=== PATIENT | female | born 1980 | race Caucasian/White ===

== ENCOUNTER 2019-02-27 18:46 | Emergency (ER) | payer BC ==
[2019-02-27] MEDS ORDERED: ONDANSETRON 4 MG/2 ML VIAL ONE (19:33)
[2019-02-27] MEDS ORDERED: NA CHLORIDE 0.9% 1,000 ML ONE (19:33)
[2019-02-27] MEDS ORDERED: MEPERIDINE HCL 25 MG/0.5 ML ONE ×2 (19:33→21:57)
[2019-02-27 20:06] LABS: Absolute Lymphocytes (CBC) 0.6 K/uL (0.7-4.9); Absolute Monocytes 0.3 K/uL (0.1-1.3); Absolute Neutrophil 8.3 K/uL (1.8-8.0); Basophils % 0.2 % (0-1.3); Hematocrit 43.1 % (36.0-45.0); Lymphocytes % 6.3 % (15.3-44.8); MPV 8.9 fL (7.6-11.3); Monocytes % 3.1 % (3.3-12.3); RBC Red Blood Cell Count 5.08 M/uL (3.86-4.86)
[2019-02-27 20:15] LABS: ALT/SGPT 17 U/L (12-78); AST/SGOT 10 U/L (15-37); Albumin 3.6 g/dL (3.4-5.0); Alkaline Phosphatase 86 U/L (45-117); BUN Blood Urea Nitrogen 15 mg/dL (7-18); Bicarbonate 21 mmol/L (21-32); Bilirubin Direct < 0.1 mg/dL (0-0.2); Bilirubin Total 0.5 mg/dL (0.2-1.0); Glucose Level 132 mg/dL (74-106); Lipase 53 U/L (73-393); Potassium 3.6 mmol/L (3.5-5.1); Protein, Total 7.6 g/dL (6.4-8.2); Sodium Level 139 mmol/L (136-145)
[2019-02-27 20:33] LABS: Blood Morphology Comment NOT SEEN (NOT SEEN); Platelet Estimate ADEQ; Urine White Blood Cell Casts OK
[2019-02-27 21:32] LABS: Urine Bacteria >50 /HPF (<20); Urine RBC <5 /HPF (NONE SEEN)
[2019-02-27 21:33] LABS: Urine Amorphous Sediment 3+ /HPF (NONE SEEN); Urine Culture Reflex Order REFLEXED; Urine Mucus 3+ /HPF (NONE SEEN)
[2019-02-27 21:37] LABS: Urine Blood NEGATIVE (NEG); Urine Glucose NEGATIVE (NEG); Urine Protein NEGATIVE (NEG); Urine Specific Gravity >1.030 (1.005-1.030)
[2019-02-28] MEDS ORDERED: HYDROCODONE/APAP 10/325 TAB ONE (00:51)
[2019-02-28] MEDS ORDERED: metroNIDAZOLE 500 MG TABLET ONE (00:51)
[2019-02-28] MEDS ORDERED: ONDANSETRON 4 MG/2 ML VIAL ONE (00:52)
[2019-02-28] MEDS ORDERED: CIPROFLOXACIN HCL 500 MG TAB ONE (00:52)
--- NOTE | 2019-02-28 00:56 | EDPHYS ---
Physician Documentation [facility] Name: Mirna Price Age: 38 yrs Sex: Female : 1980 Arrival Date: 02/27/2019 Time: 18:50 Bed 20 Private MD: ED Physician Aj Huynh HPI: 02/27 19:42 This 38 yrs old Female presents to ER via Wheelchair with complaints of rn Abdominal Pain, Vomiting. 19:42 The patient presents to the emergency department with nausea, vomiting, diarrhea, rn abdominal pain. Onset: The symptoms/episode began/occurred this morning. Possible causes: unknown. The symptoms are aggravated by pressure, The symptoms are alleviated by nothing. Severity of symptoms: At their worst the symptoms were moderate in the emergency department the symptoms are unchanged. The patient has experienced a previous episode. The patient has not recently seen a physician. Reports abd pain, diffuse, began at 0400 today, assoc with non-bloody vomiting and diarrhea. Non-focal pain. + fever. Not able to keep anything down. . 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 - Social history:: Smoking status: Patient/guardian denies using tobacco. - Ebola Screening: : No symptoms or risks identified at this time. - Family history:: not pertinent. - Hospitalizations: : No recent hospitalization is reported. ROS: 19:42 Constitutional: + fever Eyes: Negative for injury, pain, redness, and discharge, ENT: rn Negative for injury, pain, and discharge, Neck: Negative for injury, pain, and swelling, Cardiovascular: Negative for palpitations, and edema, Respiratory: Negative for shortness of breath, cough, wheezing, and pleuritic chest pain, Abdomen/GI: + abd pain/nausea/vomiting/diarrhea Back: Negative for injury and pain, : Negative for injury, bleeding, discharge, and swelling, MS/Extremity: Negative for injury and deformity, Skin: Negative for injury, rash, and discoloration, Neuro: + generalized weakness, negative for headache or seizure Exam: 19:42 Constitutional: This is a well developed, well nourished patient who is awake, alert, rn appears uncomfortable and holding emesis bag Head/Face: Normocephalic, atraumatic. Eyes: Pupils equal round and reactive to light, extra-ocular motions intact. Lids and lashes normal. Conjunctiva and sclera are non-icteric and not injected. Cornea within normal limits. Periorbital areas with no swelling, redness, or edema. ENT: dry MM Cardiovascular: tachycardic, regular, pulses intact and equal Respiratory: mild tachypnea, speaking full sentences, no retractions Abdomen/GI: soft, mild tenderness all 4 quadrants, no rebound or peritoneal signs. Skin: Warm, dry, no evidence of cellulitis MS/ Extremity: Pulses equal, no cyanosis. Neurovascular intact. Full, normal range of motion. Equal circumference. Neuro: Awake and alert, GCS 15, oriented to person, place, time, and situation. Cranial nerves II-XII grossly intact. Motor strength 5/5 in all extremities. Sensory grossly intact. Cerebellar exam normal. Vital Signs: 18:55 BP 130 / 78; Pulse 116; Resp 24 S; Temp 98.3(O); Pulse Ox 99% on R/A; Weight 127.01 kg aa5 (R); Height 5 ft. 11 in. (180.34 cm) (R); Pain 7/10; 19:30 BP 155 / 75; Pulse 90; Resp 22; Temp 98.4; Pulse Ox 99% ; Pain 10/10; rr5 20:00 BP 158 / 82; Pulse 94; Resp 18; Pulse Ox 99% on R/A; rr5 21:00 BP 141 / 70; Pulse 85; Resp 16; Pulse Ox 98% on R/A; rr5 23:00 BP 134 / 75; Pulse 90; Resp 17; Pulse Ox 99% ; rr5 02/28 00:00 BP 133 / 84; Pulse 85; Resp 16; Temp 98.4; Pulse Ox 99% ; rr5 00:40 BP 131 / 80; Pulse 80; Resp 16; Temp 98.4; Pulse Ox 99% ; Pain 7/10; rr5 02/27 18:55 Body Mass Index 39.05 (127.01 kg, 180.34 cm) aa5 MDM: 02/27 18:59 Patient medically screened. rn 23:06 ED course: Per Dr. Harris, borderline appendix and oral contrast did not make it to rn appendix, states more consistent with enteritis, her clinical picture is more consistent with enteritis, will re-scan to prove not acute appendicitis. Pt did drink oral contrast, not sure why didn't show up on imaging.. 02/28 00:27 ED course: Repeat CT abdomen shows normal appendix, patient feels better, is getting PO rn challenge and if passes will dc home. . 00:54 Differential diagnosis: Nonspecific abd pain, gastritis, pancreatitis, appendicitis, rn diverticulitis, viral gastroenteritis, gastroenteritis. Data reviewed: vital signs, nurses notes, lab test result(s), radiologic studies, CT scan, and as a result, I will discharge patient. Counseling: I had a detailed discussion with the patient and/or guardian regarding: the historical points, exam findings, and any diagnostic results supporting the discharge/admit diagnosis, lab results, radiology results, the need for outpatient follow up, to return to the emergency department if symptoms worsen or persist or if there are any questions or concerns that arise at home. Response to treatment: the patient's symptoms have markedly improved after treatment, and as a result, I will discharge patient. Special discussion: Based on the patient's Hx, exam, and Dx evaluation, there is no indication for emergent surgery or inpatient Tx. It is understood by the patient/guardian that if the Sx's persist or worsen they need to return immediately for re-evaluation. I discussed with the patient/guardian in detail that at this point there is no indication for admission to the hospital. It is understood, however, that if the symptoms persist or worsen the patient needs to return immediately for re-evaluation. 02/27 19:08 Order name: Basic Metabolic Panel rn 02/27 19:08 Order name: CBC with Diff; Complete Time: 22:59 02/27 19:08 Order name: Hepatic Function rn 02/27 19:08 Order name: Lipase; Complete Time: 22:59 02/27 19:08 Order name: Urine Microscopic Only; Complete Time: 22:59 02/27 19:10 Order name: Basic Metabolic Panel; Complete Time: 22:59 EDMS 02/27 19:08 Order name: CT Abd/Pelvis - W/Contrast 02/27 19:10 Order name: Liver (Hepatic) Function; Complete Time: 22:59 EDMS 02/27 19:47 Order name: Flu; Complete Time: 22:59 rn 02/27 20:09 Order name: CBC Smear Scan; Complete Time: 22:59 [facility] 02/27 21:25 Order name: Urine --Ancillary (enter results); Complete Time: 22:59 [facility] 02/27 21:25 Order name: Urine Dipstick--Ancillary (enter results); Complete Time: 22:59 [facility] 02/27 21:35 Order name: Urine Culture [facility] 02/27 19:08 Order name: IV Saline Lock; Complete Time: 20:06 rn 02/27 19:08 Order name: Labs collected and sent; Complete Time: 20:06 rn 02/27 19:08 Order name: Urine Test (obtain specimen); Complete Time: 20:33 rn 02/27 19:08 Order name: Urine Dipstick-Ancillary (obtain specimen); Complete Time: 20:33 rn Administered Medications: 02/27 19:40 Drug: NS 0.9% 1000 ml Route: IV; Rate: 1000 ml; Site: left forearm; rr5 20:34 Follow up: Response: No adverse reaction; IV Status: Completed infusion; IV Intake: rr5 1000ml 21:35 Follow up: Response: No adverse reaction; IV Status: Completed infusion; IV Intake: rr5 1000ml 19:41 Drug: Zofran 4 mg Route: IVP; Site: left forearm; rr5 21:00 Follow up: Response: No adverse reaction rr5 19:43 Drug: Demerol 25 mg Route: IVP; Site: left forearm; rr5 20:40 Follow up: Response: No adverse reaction rr5 21:35 Drug: Demerol 25 mg Route: IVP; Site: left forearm; rr5 22:35 Follow up: Response: No adverse reaction rr5 02/28 00:40 Drug: Zofran 4 mg Route: IVP; Site: left forearm; rr5 01:12 Follow up: Response: No adverse reaction rr5 00:42 Drug: [place] 10 mg-325 mg 1 tabs Route: PO; rr5 01:12 Follow up: Response: No adverse reaction rr5 00:42 Drug: Cipro 500 mg Route: PO; rr5 01:12 Follow up: Response: No adverse reaction rr5 00:42 Drug: Flagyl 500 mg Route: PO; rr5 01:12 Follow up: Response: No adverse reaction rr5 Disposition: 02/28/19 00:55 Discharged to Home. Impression: Enteritis, Vomiting, unspecified, Diarrhea, unspecified. - Condition is Stable. - Discharge Instructions: Diarrhea, Adult, Nausea and Vomiting, Adult, Viral Gastroenteritis, Adult. - Prescriptions for Zofran ODT 4 mg Oral tablet,disintegrating - place 1 tablet by TRANSLINGUAL route every 8 hours As needed; 20 tablet. Cipro 500 mg Oral Tablet - take 1 tablet by ORAL route every 12 hours for 10 days; 20 tablet. Flagyl 500 mg Oral Tablet - take 1 tablet by ORAL route every 8 hours for 10 days; 30 tablet. Tylenol- Codeine #3 300-30 mg Oral Tablet - take 1 tablet by ORAL route every 6 hours As needed; 20 tablet. - Medication Reconciliation Form, Thank You Letter, Antibiotic Education, Prescription Opioid Use form. - Follow up: Private Physician; When: As needed; Reason: Recheck today's complaints, Re-evaluation by your physician. - Problem is new. - Symptoms have improved. Signatures: Dispatcher [employer] [facility] Aj Huynh MD MD rn Calderon, Audri RN RN aa5 Maged Silva RN RN rr5 Corrections: (The following items were deleted from the chart) 00:19 00:14 Pelvis Wo Cont ordered. [facility] 01:13 00:55 02/28/2019 00:55 Discharged to Home. Impression: Enteritis; Vomiting, rr5 unspecified; Diarrhea, unspecified. Condition is Stable. Forms are Medication Reconciliation Form, Thank You Letter, Antibiotic Education, Prescription Opioid Use. Follow up: Private Physician; When: As needed; Reason: Recheck today's complaints, Re-evaluation by your physician. Problem is new. Symptoms have improved. rn
--- NOTE | 2019-02-28 00:56 | ER ---
Nurse's Notes [facility] Name: Mirna Price Age: 38 yrs Sex: Female : 1980 Arrival Date: 02/27/2019 Time: 18:50 Bed 20 Private MD: Diagnosis: Enteritis;Vomiting, unspecified;Diarrhea, unspecified Presentation: 02/27 18:53 Presenting complaint: Patient states: abdominal pain, nausea, vomiting, and diarrhea aa5 that began today at 0400. Pt also reports fever up to 101.5 F. Transition of care: patient was not received from another setting of care. Onset of symptoms was February 27, 2019. Risk Assessment: Do you want to hurt yourself or someone else? Patient reports no desire to harm self or others. Care prior to arrival: None. 18:53 Method Of Arrival: Wheelchair aa5 18:53 Acuity: MIRA 3 aa5 19:20 Initial Sepsis Screen: Does the patient meet any 2 criteria? No. Patient's initial rr5 sepsis screen is negative. Does the patient have a suspected source of infection? No. Patient's initial sepsis screen is negative. 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 - Social history:: Smoking status: Patient/guardian denies using tobacco. - Ebola Screening: : No symptoms or risks identified at this time. - Family history:: not pertinent. - Hospitalizations: : No recent hospitalization is reported. Screenin:00 Abuse screen: Denies threats or abuse. Denies injuries from another. Nutritional rr5 screening: No deficits noted. Tuberculosis screening: No symptoms or risk factors identified. Fall Risk IV access (20 points). Total Miller Fall Scale indicates No Risk (0-24 pts). Assessment: 19:10 General: Appears in no apparent distress. uncomfortable, Behavior is calm, cooperative, rr5 appropriate for age, crying. Pain: Complains of pain in abdomen Pain does not radiate. Pain currently is 7 out of 10 on a pain scale. Quality of pain is described as aching, Pain began gradually, Is intermittent. Neuro: Level of Consciousness is awake, alert, obeys commands, Oriented to person, place, time, situation, Appropriate for age. Cardiovascular: Capillary refill < 3 seconds Patient's skin is warm and dry. Respiratory: Airway is patent Respiratory effort is even, unlabored, Respiratory pattern is regular, symmetrical. GI: Abdomen is round obese, Bowel sounds present X 4 quads. Abd is soft X 4 quads Reports lower abdominal pain, upper abdominal pain, nausea, vomiting. : No signs and/or symptoms were reported regarding the genitourinary system. EENT: No signs and/or symptoms were reported regarding the EENT system. Derm: Skin is intact, Skin temperature is warm. Musculoskeletal: Capillary refill < 3 seconds, Range of motion: intact in all extremities. 20:00 Reassessment: Patient appears in no apparent distress at this time. oral contrast rr5 consumed. CT staff informed. 20:44 Reassessment: Patient appears in no apparent distress at this time. Patient is alert, rr5 oriented x 3, equal unlabored respirations, skin warm/dry/pink. awaiting for CT procedure Patient states symptoms have improved. 21:30 Reassessment: Patient appears in no apparent distress at this time. complaints that rr5 abdominal pain came back. ED provider aware with order made and carried out. 21:48 Reassessment: Patient appears in no apparent distress at this time. Patient is alert, rr5 oriented x 3, equal unlabored respirations, skin warm/dry/pink. went for CT scan. 22:00 Reassessment: Patient appears in no apparent distress at this time. Patient is alert, rr5 oriented x 3, equal unlabored respirations, skin warm/dry/pink. back from CT scan. 23:00 Reassessment: Patient appears in no apparent distress at this time. Patient and/or rr5 family updated on plan of care and expected duration. Pain level reassessed. Patient is alert, oriented x 3, equal unlabored respirations, skin warm/dry/pink. Patient states feeling better. Patient states symptoms have improved. 23:15 Reassessment: Ed provider wants to re scan the patient.talked to patient and agreed. rr5 02/28 00:10 Reassessment: Patient appears in no apparent distress at this time. Patient and/or rr5 family updated on plan of care and expected duration. Pain level reassessed. Patient is alert, oriented x 3, equal unlabored respirations, skin warm/dry/pink. came back from CT scan. 01:05 Reassessment: Patient appears in no apparent distress at this time. Patient and/or rr5 family updated on plan of care and expected duration. Pain level reassessed. Patient is alert, oriented x 3, equal unlabored respirations, skin warm/dry/pink. discharge instruction given and explained without complaints made. Patient states feeling better. Patient states symptoms have improved. Vital Signs: 02/27 18:55 BP 130 / 78; Pulse 116; Resp 24 S; Temp 98.3(O); Pulse Ox 99% on R/A; Weight 127.01 kg aa5 (R); Height 5 ft. 11 in. (180.34 cm) (R); Pain 7/10; 19:30 BP 155 / 75; Pulse 90; Resp 22; Temp 98.4; Pulse Ox 99% ; Pain 10/10; rr5 20:00 BP 158 / 82; Pulse 94; Resp 18; Pulse Ox 99% on R/A; rr5 21:00 BP 141 / 70; Pulse 85; Resp 16; Pulse Ox 98% on R/A; rr5 23:00 BP 134 / 75; Pulse 90; Resp 17; Pulse Ox 99% ; rr5 02/28 00:00 BP 133 / 84; Pulse 85; Resp 16; Temp 98.4; Pulse Ox 99% ; rr5 00:40 BP 131 / 80; Pulse 80; Resp 16; Temp 98.4; Pulse Ox 99% ; Pain 7/10; rr5 02/27 18:55 Body Mass Index 39.05 (127.01 kg, 180.34 cm) aa5 ED Course: 02/27 18:50 Patient arrived in ED. mr 18:54 Triage completed. aa5 18:54 Arm band placed on. aa5 18:58 Aj Huynh MD is Attending Physician. rn 19:14 Maged Silva, MATT is Primary Nurse. rr5 19:20 Patient has correct armband on for positive identification. Placed in gown. Bed in low rr5 position. Call light in reach. Side rails up X2. Pulse ox on. NIBP on. 19:40 Initial lab(s) drawn, by me, sent to lab. Inserted saline lock: 20 gauge in left rr5 forearm, using aseptic technique. Blood collected. 21:55 CT Abd/Pelvis - W/Contrast In Process Unspecified. EDMS 02/28 01:10 No provider procedures requiring assistance completed. IV discontinued, intact, rr5 bleeding controlled, No redness/swelling at site. Pressure dressing applied. Administered Medications: 02/27 19:40 Drug: NS 0.9% 1000 ml Route: IV; Rate: 1000 ml; Site: left forearm; rr5 20:34 Follow up: Response: No adverse reaction; IV Status: Completed infusion; IV Intake: rr5 1000ml 21:35 Follow up: Response: No adverse reaction; IV Status: Completed infusion; IV Intake: rr5 1000ml 19:41 Drug: Zofran 4 mg Route: IVP; Site: left forearm; rr5 21:00 Follow up: Response: No adverse reaction rr5 19:43 Drug: Demerol 25 mg Route: IVP; Site: left forearm; rr5 20:40 Follow up: Response: No adverse reaction rr5 21:35 Drug: Demerol 25 mg Route: IVP; Site: left forearm; rr5 22:35 Follow up: Response: No adverse reaction rr5 02/28 00:40 Drug: Zofran 4 mg Route: IVP; Site: left forearm; rr5 01:12 Follow up: Response: No adverse reaction rr5 00:42 Drug: [place] 10 mg-325 mg 1 tabs Route: PO; rr5 01:12 Follow up: Response: No adverse reaction rr5 00:42 Drug: Cipro 500 mg Route: PO; rr5 01:12 Follow up: Response: No adverse reaction rr5 00:42 Drug: Flagyl 500 mg Route: PO; rr5 01:12 Follow up: Response: No adverse reaction rr5 Intake: 02/27 20:34 IV: 1000ml; Total: 1000ml. rr5 21:35 IV: 1000ml; Total: 2000ml. rr5 Outcome: 02/28 00:55 Discharge ordered by . rn 01:10 Discharged to home ambulatory, with family. rr5 01:10 Condition: stable 01:10 Discharge instructions given to patient, Instructed on discharge instructions, follow up and referral plans. medication usage, Demonstrated understanding of instructions, follow-up care, medications, Prescriptions given X 4. 01:13 Patient left the ED. rr5 Signatures: Dispatcher [employer] NITABia Badillo mr HuynhAj celis MD MD rn Yue Jackson, RN RN aa5 Maged Silva RN RN rr5 Corrections: (The following items were deleted from the chart) 02/27 23:34 23:15 Reassessment: CT department wants to re scan the patient. ED provider talked to rr5 patient and agreed. rr5
[2019-02-28 01:28] VITALS: TEMP 98.4
[2019-02-28 01:32] VITALS: O2SAT 99
[2019-02-28 01:35] VITALS: BP 131/80
--- NOTE | 2019-02-28 13:11 | RAD REPORT ---
EXAM DESCRIPTION: CT - Abdomen Pelvis W Contrast - 02/28/2019 11:39 am CLINICAL HISTORY: Abdominal pain COMPARISON: none. TECHNIQUE: Computed axial tomography of the abdomen pelvis was obtained. 100 cc Isovue-300 was admin istered intravenously. Oral contrast was not requested which limits evaluation of bowel. All CT scans are performed using dose optimization technique as appropriate and may include automated exposure control or mA/KV adjustment according to patient size. FINDINGS: 31 millimeter hepatic cyst Spleen, pancreas, adrenal and kidneys appear unremarkable. There is no evidence of diverticulitis. Normal appendix Fluid within nondilated large and small bowel IMPRESSION: Fluid within nondilated bowel may indicate an enteritis.
== END 2019-02-28 01:13 | disposition home or self-care (01) ==
LOC: ER 18:46
DX: K52.9 Noninfective gastroenteritis and colitis, unspecified (principal); Z88.0 Allergy status to penicillin
CPT/HCPCS: 36415; 74177; 80048; 80076; 81003; 81015; 81025; 83690; 85025; 87086; 87088; 87804; 96361; 96374; 96375; 99284; J2175; J2405; J7030; Q9967

== ENCOUNTER 2022-07-01 22:02 | Emergency (ER) | payer BC ==
--- OUTSIDE RECORDS SUMMARY | 2022-07-01 22:08 | XMS REPORT | Continuity of Care Document ---
:1980 Author Organization [facility] t Address [address] [place] [address] Care Team Providers Name Role Phone King Cat Elieser Primary Care Physician Mily Pickard Attending Clinician [phone] Rossana To MD Attending Clinician Kilo Grubbs MD Attending Clinician Ann Calloway RN Attending Clinician Unavailable Amirah Green MA Attending Clinician Unavailable Vladimir Oreilly Attending Clinician Unavailable Jose Alfredo Attending Clinician Unavailable Vladimir Oreilly Attending Clinician [phone] ROSSANA TO Admitting Clinician Unavailable Jose Alfredo Admitting Clinician Unavailable Payers Payer Name Policy Type Policy Number Effective Date Expiration Date S arturo [facility]: [place] [id number] 2022 [facility] - [place] DIRECT 00:00:00 (PPO) Problems Condition Condition Condition Status Onset Resolution Last Treating Co mments Source Name Details Category Date Date Treatment Clinician Date 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 06-14 labrum labrum 00:00: Hospita lesion of lesion of 00 l right right shoulder shoulder Biceps Biceps Disease Active [facility] tendonitis tendonitis 06-07 , , 00:00: Hospita unspecifie unspecifie 00 l d d laterality laterality Partial Partial Disease Active [facility] nontraumat nontraumat 06-07 ic tear of ic tear of 00:00: Ho spita right right 00 l rotator rotator cuff cuff Impingemen Impingemen Disease Active M ethodi t syndrome t syndrome 6-21 st of right of right 00:00: Hospit a shoulder shoulder 00 l Allergies, Adverse Reactions, Alerts Allergy Allergy Status Severity Reaction(s) Onset Inactive Treating Comm ents Source Name Type Date Date Clinician Magdalena Monzon Active Rash Method i ins ty to 8[address] st adverse 00:00: Hospita reaction 00 l s to drug Social History Social Habit Start Date Stop Date Quantity Comments Source History of Current smoker [facility] tobacco use [facility] Tobacco use and 2022-03-22 2022-03-22 Smokeless tobacco Me [facility]ist exposure 00:00:00 00:00:00 non-user Hospital Sex Assigned At [birth year] [facility] 00:00:00 00:00:00 Hospital Smoking Status Start Date Stop Date Source Ex-smoker 2022-03-22 00:00:00 2022-03-22 00:00:00 [facility] Medications Ordered Filled Start Stop Current Ordering Indication Dosage Frequency Signature Comments Components Source Medication Medication Date Date Medication? Clinician (SIG) Name Name lisinopriL Yes 15mg QD Take 1.5 Met hodi (PRINIVIL) 9-[address] 10 mg 16:00: (15 mg Hospita tablet 14 total) by l mouth daily. PARoxetine Yes 20mg QD Take 1 Metho di (PAXIL) 20 9-29 tablet (20 st MG tablet 16:00: mg total) Hos leroy 14 by mouth l every morning. keTOROlac Yes 10mg Q6H Take 1 Method i (TORadol) 9-26 tablet (10 st 10 mg 00:00: mg total) Hospita tablet 00 by mouth l every 6 (six) hours as needed for moderate pain for up to 20 doses. HYDROcodone 2021- Yes 1{tbl} Q6H Take 1-2 Methodi -acetaminop 9-26 10-04 tablets by s heidy isidro (NORCO) 00:00: 04:59 mouth Hosp georgina 5-325 mg 00 :00 every 6 l per tablet (six) hours as needed for moderate pain for up to 7 days .acute pain. Max Daily Amount: 8 tablets diclofenac 100mg QD Take 1 Met hodi sodium 03-[address] (VOTAREN 00:00: 00:00 (100 mg Hospi ta XR) 100 mg 00 :00 total) by l 24 hr mouth tablet daily. Vital Signs Vital Name Observation Time Observation Value Comments Source Systolic blood 2022-06-29 20:05:00 127 mm[Hg] [facility] pressure Diastolic blood 2022-06-29 20:05:00 85 mm[Hg] [facility] pressure Heart rate 2022-06-29 20:05:00 69 /min [facility] Body temperature 2022-06-29 20:05:00 36.67 Lori [facility] Respiratory rate 2022-06-29 20:05:00 18 /min [facility] Oxygen saturation in 2022-06-29 20:05:00 96 /min [facility] Arterial blood by Pulse oximetry BMI 2022-06-29 11:54:00 43.93 kg/m2 [facility] Body height 2022-06-29 11:54:00 180.3 cm [facility] Body weight 2022-06-29 11:54:00 142.883 kg [facility] Procedures Procedure Date / Time Performed Performing Clinician Effie HODGES AN ELECTIVE 2022-06-29 15:47:00 Justin Mohamud [facility] ENDOTRACHEAL AIRWAY [place] ARTHROSCOPY, SHOULDER 2022-06-29 15:40:00 Rossana To [facility] HC NERVE BLOCK, 2022-06-29 15:12:05 Stephanie Gloria [facility] INTERSCALENE COVID-19 QUALITATIVE 2022-06-27 15:27:00 Rossana To [facility] RT-PCR MRI SHOULDER WO CONTRAST 2022-06-10 13:40:00 Rossana To [facility] RIGHT MRI UPPER EXTREMITY 2022-02-24 23:12:43 Rossana To [facility] EXTERNAL STUDY XR UPPER EXTREMITY 2022-02-21 15:23:38 [facility] Plan of Care Planned Activity Planned Date Details Comments Source Future Scheduled 2022-06-30 HEPATITIS B [facility] Test 19:20:17 VACCINES (1 of 3 - 3-dose series) [code = HEPATITIS B VACCINES (1 of 3 - 3-dose series)] Future Scheduled 2022-06-30 COVID-19 VACCINE [facility] Test 19:20:17 (#1) [code = COVID-19 VACCINE (#1)] Future Scheduled 2022-06-30 Hepatitis C [facility] ospital Test 19:20:17 screening (procedure) [code = 315167634] Future Scheduled 2022-06-30 Screening for [facility] Test 19:20:17 malignant neoplasm of cervix (procedure) [code = 734896234] Future Scheduled 2022-06-30 BREAST CANCER [facility] Test 19:20:17 SCREENING [code = BREAST CANCER SCREENING] Future Scheduled 2022-06-30 INFLUENZA VACCINE Method [facility] Test 19:20:17 [code = INFLUENZA VACCINE] Encounters Start End Encounter Admission Attending Care Care Encounter Source Date/Time Date/Time Type Type Clinicians Facility Department ID 2022-06-30 2022-06-30 [facility] 1.2.840.1 [id number] [facility] 00:00:00 00:00:00 Mily 70191.1.1 775 s t R. 3.430.2.7 Hospit a .3.337900 l .8 2022-06-29 2022-06-29 [facility] 1.2.840.1 [id number] Methodi 06:24:00 16:00:00 Encounter Rossana Roger 92474.1.1 372 s t 3.430.2.7 Hospit a .3.087317 l .8 2022-06-29 2022-06-29 Surgery [facility] 1.2.840.1 [id number] Methodi 10:45:00 13:25:[address]1.[address] 3.430.2.7 Hospit a .3.897696 l .8 2022-06-29 2022-06-29 Anesthesia Kilo Grubbs 1.2.840.1 1 [id number] Methodi 10:40:00 12:20:00 Event Ann Calloway 24646.1.[address] 3.430.2.7 Hospit a .3.248188 l .8 2022-06-29 2022-06-29 Travel 1.2.840.1 1.2.298.540 [id number] Methodi 00:00:00 00:00:[address] 3.430.2.7 0.2.7.3.698 spita .3.948288 084.8 l .8 2022-06-29 2022-06-29 Outpatient [facility] [id number] [place] 00:00:00 00:00:00 ROSSANA [address] 2022-06-28 2022-06-28 Telephone [place], 1.2.840.1 [id number] Methodi 00:00:00 00:00:00 Ross[address]1.[address] 3.430.2.7 Hospit a .3.751981 l .8 2022-06-27 2022-06-27 Outpatient [facility] [id number] [place] 00:00:00 00:00:00 ROSSANA [address] 2022-06-17 2022-06-17 Orders Norma, 1.2.840.1 [id number] Methodi 00:00:00 00:00:00 Only Amirah 36371.1.[address] 3.430.2.7 Hospit a .3.503401 l .8 2022-06-14 2022-06-14 [facility], 1.2.840.1 [id number] Methodi 12:00:00 12:20:04 ne Rossana Roger 39571.1.[address] 3.430.2.7 Hospit a .3.670805 l .8 2022-06-14 2022-06-14 Outpatient [facility] [id number] [place] 00:00:00 00:00:00 ROSSANA [address] 2022-06-10 2022-06-10 Outpatient [facility] [id number] [place] 00:00:00 00:00:00 ROSSANA [address] 2022-06-07 2022-06-07 Office [facility], 1.2.840.1 [id number] Methodi 09:30:00 09:45:00 Visit Rossana AxelIsa 65366.1.[address] 3.430.2.7 Hospit a .3.390950 l .8 2022-06-07 2022-06-07 Outpatient YOUSUF [facility] [id number] [place] 00:00:00 00:00:[address] ROSSANA [address] 2022-06-07 2022-06-07 Travel 1.2.840.1 1.2.198.655 [id number] Methodi 00:00:00 00:00:[address] 3.430.2.7 0.2.7.3.698 Ho spita .3.963105 084.8 l .8 2022-04-21 2022-04-21 [facility], 1.2.840.1 [id number] Methodi 00:00:00 00:00:[address] 3.430.2.7 Hospit a .3.642144 l .8 2022-03-25 2022-03-25 Outpatient [id number] [facility] 07:30:00 07:30:00 Vladimir 31 [facility] 2022-03-22 2022-03-22 [facility], 1.2.840.1 [id number] Methodi 11:59:07 23:59:00 Encounter Rossana Roger 39830.1.1 616 s t 3.430.2.7 Hospit a .3.892018 l .8 2022-03-22 2022-03-22 [facility], 1.2.840.1 [id number] Methodi 11:56:57 11:58:00 Encounter Rossana Roger 37392.1.1 268 s t 3.430.2.7 Hospit a .3.551278 l .8 2022-03-22 2022-03-22 Office [place], 1.2.840.1 [id number] Methodi 10:45:00 11:15:00 Visit Rossana Roger [address]896.1.[address] 3.430.2.7 Hospit a .3.987907 l .8 2022-03-22 2022-03-22 Outpatient [place], [facility] [id number] [place] 00:00:00 00:00:00 ROSSANA [address] 2022-03-22 2022-03-22 Outpatient [place], [facility] [id number] [place] 00:00:00 00:00:00 ROSSANA [address] 2022-03-22 2022-03-22 Outpatient [place], [facility] [id number] [place] 00:00:00 00:00:00 ROSSANA [address] 2022-03-22 2022-03-22 [facility], 1.2.840.1 [id number] Methodi 00:00:00 00:00:00 Only Rossana Roger 85878.1.[address] 3.430.2.7 Hospit a .3.488162 l .8 2022-03-01 2022-03-01 Outpatient FOG_Burke_R AOSM AOSM [id number] Ava 05:15:00 05:15:00 Bob [id number] [facility] 2022-03-01 2022-03-01 Outpatient Oreilly, AOSM AOSM [id number] 4-e 00:00:00 00:00:00 Vladimir Browning [id number]-[id number] 3eacc1 2022-02-24 2022-02-24 Outpatient Oreilly, AOSM AOSM [id number] e-e 00:00:00 00:00:00 Vladimir Browning [id number]-a [id number] 3eacc1 2022-02-23 2022-02-23 Travel 1.2.840.1 1.2.437.064 [id number] Methodi 00:00:00 00:00:[address] 3.430.2.7 0.2.7.3.698 Ho spita .3.522710 084.8 l .8 Results Test Description Test Time Test Comments Results Result Comments Source SARS-CoV-2 (COVID-19) RNA [Presence] in Respiratory sp ecimen by 2022-06-27 22:16:14 [place] with probe detection Test Item Value Reference Range Interpretation Comme nts SARS-CoV-2 (COVID-19) RNA [Presence] in Respiratory specimen by Not detected [place] with probe detection (test code = 19970-3) Whether patient is employed in a healthcare setting (test code = Un known 85826-7) Whether the patient has symptoms related to condition of interest U nknown (test code = 40156-0) Whether the patient was hospitalized for condition of interest Unkn own (test code = 32334-8) Whether the patient was admitted to intensive care unit (ICU) for U nknown condition of interest (test code = 80597-8) Whether patient resides in a congregate care setting (test code = U nknown 16177-7) status (test code = 57751-6) Unknown Date and time of symptom onset (test code = 38202-2) Unknown
[2022-07-01 22:57] LABS: Absolute Lymphocytes (CBC) 2.4 K/uL (0.7-4.9); Hematocrit 31.5 % (36.0-45.0); Lymphocytes % 30.8 % (15.3-44.8); MCV 82.9 fL (80-100); MPV 7.9 fL (7.6-11.3); RBC Red Blood Cell Count 3.81 M/uL (3.86-4.86)
[2022-07-01 23:23] LABS: Protime INR 0.93
[2022-07-01 23:52] LABS: Urine Blood 3+ (Negative); Urine Glucose Negative (Negative); Urine Protein 1+ (Negative); Urine Specific Gravity >=1.030 (1.005-1.030); Urine pH 5.5 (5.0-7.0)
--- NOTE | 2022-07-02 01:02 | ER ---
Nurse's Notes [facility] Name: Mirna Price Age: 41 yrs Sex: Female : 1980 Arrival Date: 07/01/2022 Time: 22:05 Bed 15 Private MD: Diagnosis: Dyspnea Presentation: 07/01 22:26 Chief complaint: Patient states: Pt reports rotator cuff surgery on Mon and began kb3 feeling SOB yesterday. States SOB has gotten worse throughout today. Mild exertional SOB noted with ambulation. Coronavirus screen: Vaccine status: Patient reports being unvaccinated. Client denies travel out of the [place] in the last 14 days. Ebola Screen: Patient negative for fever greater than or equal to 101.5 degrees Fahrenheit, and additional compatible Ebola Virus Disease symptoms Patient denies exposure to infectious person. Patient denies travel to an Ebola-affected area in the 21 days before illness onset. No symptoms or risks identified at this time. Initial Sepsis Screen: Does the patient meet any 2 criteria? No. Patient's initial sepsis screen is negative. Does the patient have a suspected source of infection? No. Patient's initial sepsis screen is negative. Risk Assessment: Do you want to hurt yourself or someone else? Patient reports no desire to harm self or others. Onset of symptoms was June 30, 2022. 22:26 Method Of Arrival: Ambulatory 3 22:26 Acuity: MIRA 3 kb3 Triage Assessment: 22:28 General: Appears in no apparent distress. Behavior is calm, cooperative. Pain: kb3 Complains of pain in anterior aspect of right shoulder Pain does not radiate. Pain currently is 5 out of 10 on a pain scale. Respiratory: Reports shortness of breath Onset: The symptoms/episode began/occurred yesterday, the patient has mild shortness of breath. 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 Last tetanus immunization: unknown. - Social history:: Smoking status: Patient denies any tobacco usage or history of. Screenin:53 Abuse screen: Denies threats or abuse. Nutritional screening: No deficits noted. ke1 Tuberculosis screening: No symptoms or risk factors identified. Fall Risk No fall in past 12 months (0 pts). No secondary diagnosis (0 pts). IV access (20 points). Ambulatory Aid- None/Bed Rest/Nurse Assist (0 pts). Gait- Normal/Bed Rest/Wheelchair (0 pts) Mental Status- Oriented to own ability (0 pts). Total Miller Fall Scale indicates. Assessment: 22:53 Cardiovascular: Rhythm is. Respiratory: Airway is patent Respiratory effort is even, ke1 unlabored, Breath sounds are clear bilaterally. Vital Signs: 22:26 BP 155 / 85; Pulse 77; Resp 22; Temp 98.1; Pulse Ox 97% ; Weight 142.88 kg; Height 5 kb3 ft. 11 in. (180.34 cm); Pain 5/10; 22:26 Body Mass Index 43.93 (142.88 kg, 180.34 cm) kb3 ED Course: 22:05 Patient arrived in ED. bp1 22:17 Serenity Tsai [facility]-C [facility] kb 22:17 Prasanth Begum MD is Attending Physician. kb 22:19 Juan Rai, MATT is Primary Nurse. ke1 22:28 Triage completed. kb3 22:28 Arm band placed on right wrist. kb3 22:53 COVID-19 SARS RT PCR (Document "Date of Onset" if Symptomatic) Sent. ke1 22:53 Inserted saline lock: 22 gauge in left forearm, using aseptic technique. ke1 22:54 Placed in gown. Bed in low position. ke1 07/02 01:20 No provider procedures requiring assistance completed. IV discontinued. ke1 Administered Medications: No medications were administered Medication: 01:20 VIS not applicable for this client. ke1 Outcome: 01:01 Discharge ordered by . kb 01:20 Discharged to home ambulatory. ke1 01:20 Condition: good 01:20 Discharge instructions given to patient. 01:20 Patient left the ED. ke1 Signatures: Serenity Tsai, CARLOS-C EXPLOSIVE ORDNANCE DISPOSAL TECHNICIAN-Noreen Solis Kouassi, RN RN ke1 Krystle Truong RN RN kb3
--- NOTE | 2022-07-02 01:02 | EDPHYS ---
Physician Documentation [facility] Name: Mirna Price Age: 41 yrs Sex: Female : 1980 Arrival Date: 07/01/2022 Time: 22:05 Bed 15 Private MD: ED Physician Prasanth Begum HPI: 07/02 00:55 This 41 yrs old Female presents to ER via Ambulatory with complaints of Shortness Of kb Breath. 00:55 The patient has shortness of breath at rest. Onset: The symptoms/episode began/occurred kb yesterday. Duration: The symptoms are continuous. The patient's shortness of breath is aggravated by nothing, is alleviated by nothing. Associated signs and symptoms: The patient has no apparent associated signs or symptoms. Severity of symptoms: At their worst the symptoms were moderate in the emergency department the symptoms are unchanged. The patient has not experienced similar symptoms in the past. The patient has not recently seen a physician. Pt had shoulder surgery under general anesthesia on Monday. Started having shortness of breath on . . 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 Last tetanus immunization: unknown. - Social history:: Smoking status: Patient denies any tobacco usage or history of. ROS: 07/02 00:55 Constitutional: Negative for fever, chills, and weight loss. kb Respiratory: Positive for shortness of breath. All other systems are negative. Exam: 00:55 Constitutional: This is a well developed, well nourished patient who is awake, alert, kb and in no acute distress. Head/Face: Normocephalic, atraumatic. ENT: Moist Mucous membranes Cardiovascular: Regular rate and rhythm with a normal S1 and S2. No gallops, murmurs, or rubs. No pulse deficits. Respiratory: Respirations even and unlabored. No increased work of breathing. Talking in full sentences Abdomen/GI: Soft, non-tender. No distention Skin: Warm, dry with normal turgor. Normal color. MS/ Extremity: Pulses equal, no cyanosis. Neurovascular intact. Full, normal range of motion. Neuro: Awake and alert, GCS 15, oriented to person, place, time, and situation. Moves all extremities. Normal gait. Psych: Awake, alert, with orientation to person, place and time. Behavior, mood, and affect are within normal limits. Vital Signs: 07/01 22: BP 155 / 85; Pulse 77; Resp 22; Temp 98.1; Pulse Ox 97% ; Weight 142.88 kg; Height 5 kb3 ft. 11 in. (180.34 cm); Pain 5/10; 22:26 Body Mass Index 43.93 (142.88 kg, 180.34 cm) kb3 MDM: 22:20 Patient medically screened. kb 07/02 00:55 Data reviewed: vital signs, nurses notes. Data interpreted: Pulse oximetry: on room air kb is 97 %. Interpretation: normal. 00:58 Counseling: I had a detailed discussion with the patient and/or guardian regarding: the kb historical points, exam findings, and any diagnostic results supporting the discharge/admit diagnosis, lab results, radiology results, the need for outpatient follow up, a family practitioner, to return to the emergency department if symptoms worsen or persist or if there are any questions or concerns that arise at home. 01:00 ED course: Pt nontoxic in appearance. no resp distress. lungs clear bilaterally with kb equal respirations. O2 sat 100% on room air. Pt educated on diagnostic results and comfortable going home at this time. . 07/01 22: Order name: CBC with Diff 07/01 22:30 Order name: Basic Metabolic Panel kb 07/01 22:30 Order name: Protime (+inr) kb 07/01 22:30 Order name: Ptt, Activated 07/01 22: Order name: D-Dimer 07/01 22: Order name: COVID-19 SARS RT PCR (Document "Date of Onset" if Symptomatic) kb 07/01 22:59 Order name: CBC with Automated Diff; Complete Time: 23:23 EDMS 07/01 23:12 Order name: Basic Metabolic Panel; Complete Time: 23:23 EDMS 07/01 23:23 Order name: Protime (+INR); Complete Time: 23:27 EDMS 07/01 23:23 Order name: PTT, Activated Partial Thromb; Complete Time: 23:27 EDMS 07/01 23:27 Order name: D-Dimer; Complete Time: 23:27 EDMS 07/01 23:40 Order name: SARS-COV-2 RT PCR; Complete Time: 23:43 EDMS 07/01 23:53 Order name: Urine Dipstick-Ancillary; Complete Time: 23:56 EDMS 07/01 22:30 Order name: IV Start; Complete Time: 22:52 kb 07/01 23:27 Order name: CT Chest For PE Angio kb Administered Medications: No medications were administered Disposition Summary: 07/02/22 01:01 Discharge Ordered Location: Home kb Condition: Stable kb Diagnosis - Dyspnea kb Followup: kb - With: Emergency Department - When: As needed - Reason: Worsening of condition Followup: kb - With: Private Physician - When: 2 - 3 days - Reason: Recheck today's complaints, Continuance of care, Re-evaluation by your physician Discharge Instructions: - Discharge Summary Sheet kb - Shortness of Breath, Adult, Wvxm-[id number]-Ohct kb Forms: - Medication Reconciliation Form kb - Thank You Letter kb - Antibiotic Education kb - Prescription Opioid Use kb Signatures: Dispatcher [employer] Serenity Blevins, CARLOS-Dona GONZALEZ-Krystle Da Silva, RN RN kb3
[2022-07-02 12:07] VITALS: BP 155/85; TEMP 98.1; O2SAT 97
--- NOTE | 2022-07-02 20:15 | RAD REPORT ---
EXAM DESCRIPTION: CT - Chest For Pe Angio - 07/02/2022 12:28 am CLINICAL HISTORY: The patient is 41 years old and is Female; dyspnea, elevated dd TECHNIQUE: Axial computed tomographic angiography images of the chest with intravenous contrast. T his CT exam was performed using one or more of the following dose reduction techniques: automated e xposure control, adjustment of the mA and/or kV according to patient size, and/or use of iterative re construction technique. MIP reconstructed images were created and reviewed. Oblique reformatted images were created and reviewed. DLP: 942 mGy*cm COMPARISON: None. FINDINGS: PULMONARY ARTERIES: Limited evaluation due to poor bolus timing. No central pulmonary em boli. AORTA: No acute findings. No thoracic aortic aneurysm. LUNGS: Right lung base atelectasis or scarring. No focal consolidation. PLEURAL SPACE: Unremarkable. No significant effusion. No pneumothorax. HEART: Unremarkable. No cardiomegaly. No significant pericardial effusion. No evidence of RV dysfunction. BONES/JOINTS: No acute fracture. No dislocation. SOFT TISSUES: Unremarkable. LYMPH NODES: Unremarkable. No enlarged lymph nodes. LIVER: Hepatomegaly. GALLBLADDER AND BILE DUCTS: Prior cholecystectomy. IMPRESSION: 1. Limited evaluation due to poor bolus timing. No central pulmonary emboli. 2. Right lung base atelectasis or scarring. No focal consolidation. 3. Hepatomegaly. Electronically signed by: Bogdan Love DO 07/02/2022 12:54 AM CDT Due to temporary technical issues with the PACS/Fluency reporting system, reports are being signed by the in house radiologists without review as a courtesy to insure prompt reporting. The interpreting radiologist is fully responsible for the content of the report.
== END 2022-07-02 01:20 | disposition home or self-care (01) ==
LOC: ER 22:02
DX: R06.00 Dyspnea, unspecified (principal); Z20.822 Contact with and (suspected) exposure to COVID-19; I10 Essential (primary) hypertension; F32.A Depression, unspecified; Z88.0 Allergy status to penicillin; Z98.890 Other specified postprocedural states
CPT/HCPCS: 85025; 80048; 36415; 85610; 85379; 85730; 81003; 71275; 99283; U0003; Q9967

== ENCOUNTER 2022-10-28 07:33 | Day surgery (SDC) | payer BC ==
[2022-10-28 07:52] LABS: Urine Specific Gravity/Preg >1.030 (1.005-1.030)
[2022-10-28] MEDS: Ringers Lactate 1,000 ML IV ONE ×2 (08:14→08:50)
[2022-10-28] MEDS ORDERED: SIMETHICONE 40 MG/ 0.6 ML ONE (08:47)
[2022-10-28] MEDS ORDERED: propofoL 200 MG/20 ML VIAL IV ONE (08:52)
[2022-10-28] MEDS ORDERED: LIDOCAINE 1% MPF 5 ML VIAL ONE (08:52)
--- NOTE | 2022-10-28 09:19 | ENDO RPT ---
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 ESTIMATED BLOOD LOSS: None CONSENT: The patient understands the risks and benefits of the procedure and understands that these risks include, but are not limited to: sedation, allergic reaction, infection, perforation and/or bleeding. Alternative means of evaluation and treatment include, among others: physical exam, x-rays, and/or surgical intervention. The patient elects to proceed with this endoscopic procedure. DESCRIPTION OF PROCEDURE: During intra-op preparation period all mechanical medical equipment was checked for proper function. Hand hygiene and appropriate measures for infection prevention was taken. Procedure, possible complications, alternatives including, but not limited to possibility of bleeding, perforation, tear, infection, sepsis, need for surgery, need for blood transfusion, were explained to the patient. After the risks, benefits and alternatives of the procedure were thoroughly explained, Informed consent was verified, confirmed and timeout was successfully executed by the treatment team. The patient was placed in the left lateral position. A digital rectal exam was performed and revealed internal hemorrhoids. After appropriate level of anesthesia, the scope was passed. The EC-[id number] ([id number] endoscope was introduced through the anus and advanced to the cecum, which was identified by both the appendix and ileocecal valve. The quality of the prep was fair. The instrument was then slowly withdrawn as the colon was fully examined. Scope withdrawal time was 8 minutes. COLON FINDINGS: There was moderate diverticulosis noted in the sigmoid colon with associated angulation. No bleeding was noted from the diverticulosis. Small internal hemorrhoids were found. The colon mucosa was otherwise normal. Retroflexed views revealed no abnormalities. The scope was then completely withdrawn from the patient and the procedure terminated. ADVERSE EVENTS: There were no complications. IMPRESSIONS: 1. There was moderate diverticulosis noted in the sigmoid colon 2. Small internal hemorrhoids 3. The colon mucosa was otherwise normal RECOMMENDATIONS: 1. Monitor for any evidence of rectal bleeding. 2. yearly hemoquant 3. yearly hemoccult starting in 4 years 4. low fiber / diverticular diet 5. increase dietary water RECALL: Return in 10 year(s) for Colonoscopy. Fecal DNA test in [address] eSigned: Sadiq Zuniga DR 10/28/2022 9:19 AM cc: CPT CODES: ICD9 CODES: PATIENT NAME: Mirna Price MR#: [id number]
[2022-10-28 10:58] VITALS: TEMP 97.1
[2022-10-28 10:59] VITALS: BP 93/60; O2SAT 100
== END 2022-10-28 09:53 | disposition home or self-care (01) ==
LOC: OR 07:33
PROVIDERS: ATTEND Surgery
PROC: 0DJD8ZZ Inspection of Lower Intestinal Tract, Via Natural or Artificial Opening Endoscopic (ICD-10-PCS; principal; 2022-10-28 08:30)
DX: Z12.11 Encounter for screening for malignant neoplasm of colon (principal); K64.8 Other hemorrhoids; K57.30 Diverticulosis of large intestine without perforation or abscess without bleeding
CPT/HCPCS: 81025; 45378; J2704; J2001; J7120